=== PATIENT | male | born 1950 | race Caucasian/White ===

== ENCOUNTER 2021-01-25 00:23 | Day surgery (SDC) | payer MEDICARE, BC, SELFPAY ==
[2021-01-06 14:51] VITALS: BMI 26.9
[2021-01-25 09:37] VITALS: BP 127/103; PULSE 69; RESP 16; TEMP 36.4; O2SAT 69
--- NOTE | 2021-01-25 09:39 | WPDGICN ---
Assessment and Plan Assessment and plan (1) Positive colorectal cancer screening using Cologuard test: Code(s): R19.5 - Other fecal abnormalities Status: Acute Assessment and Plan: Colonoscopy with neoplasia screening will be performed because of positive Cologuard test. Further recommendations will be given after endoscopy. (2) SSS (sick sinus syndrome): Code(s): I49.5 - Sick sinus syndrome Status: Acute GI Consult Note Consult date/time: 01/25/21 09:39 HPI: Sonu Castanon is a 70 year old male Presents for screening colonoscopy. He recently was found to have a positive Cologuard test. Patient reports his weight appetite bowel movements are normal. He denies abdominal pain. He has had no bleeding. Family history is noncontributory. Neoplasia screening colonoscopy is advised because of his positive Cologuard test. Patient does report a past history of heart disease. Initially sick sinus syndrome he now has a pacemaker in place and has had several heart ablation is a. Heart is currently functioning well with no recent difficulties. Review of Systems Review of Systems: All systems reviewed & are unremarkable except as noted in HPI and below PMFSH Past Medical History Medical History (Updated 01/25/21 @ 09:40 by Max Baldwin MD) Paroxysmal A-fib Retinal detachment, right Retinal tear of left eye Surgical History Surgical History (Updated 01/06/20 @ 11:50 by Dick Hodges, PA-C) H/O cardiac radiofrequency ablation twice S/P tympanoplasty Status cardiac pacemaker Social History Social History Smoking status: Never smoker Second hand tobacco smoke exposure: No Alcohol intake: current Drinks per week: 8 Alcohol use details: occasionally Substance use: never Substance use type: does not use Living arrangements: with family Gender identity (if verbalized by the patient): Male Sexual Orientation (if Verbalized by the Patient): Straight or Heterosexual Spiritual care concerns: No Meds Home Medications and Allergies Home Medications Medication Instructions Recorded Confirmed Type cholecalciferol (vitamin D3) 50 2,000 unit PO DAILY 05/05/19 01/06/21 History mcg (2,000 unit) tablet multivitamin 1 tablet PO DAILY 05/05/19 01/06/21 History glucosamine sulf dipotassium Cl tablet PO 05/08/19 11/14/20 History 750 mg-chondroitin sulf 600 mg tablet apixaban 5 mg tablet 5 mg PO BID #180 tablet 11/13/19 01/06/21 Rx ezetimibe 10 mg tablet 10 mg PO DAILY #90 tablet 05/10/20 01/06/21 Rx metoprolol succinate 50 mg 75 mg PO BID #270 tablet 05/10/20 01/06/21 Rx tablet,extended release 24 hr omeprazole 40 mg capsule,delayed 40 mg PO DAILY #90 cap 05/10/20 01/06/21 Rx release rosuvastatin 5 mg tablet 5 mg PO DAILY #90 tablet 05/10/20 01/06/21 Rx triamterene 37.5 1 tablet PO QAM #90 tablet 05/10/20 01/06/21 Rx mg-hydrochlorothiazide 25 mg tablet Allergies Allergy/AdvReac Type Severity Reaction Status Date / Time propafenone Allergy Unknown Nausea And Verified 01/25/21 09:35 Vomiting Exam Narrative: Physical exam reveals patient to be alert. Vital signs stable. HEENT exam is unremarkable. Patient is anicteric. Lungs are clear to auscultation and percussion. Heart is without murmur or extra sounds. Abdominal exam bowel sounds are present soft nontender with no organomegaly. Digital external rectal exam is normal.
[2021-01-25] MEDS: LACTATED RINGERS 1,000 ML 150 ML IV CONT (09:46)
--- NOTE | 2021-01-25 09:47 | WPDANESEPPF ---
Anes - Initial Pre Proc Eval Procedure: Operation Date: 01/25/21 10:30 Proposed Procedures p Colonoscopy - Max Baldwin MD Date/Time: 01/25/21 09:47 Surgeon: Max Baldwin MD Pre Op Diagnosis: positive cologuard Patient Data Age: 70 Gender: M Height: 1.83 m Weight: 85.6 kg Last Vital Signs Temp 36.4 C L 01/25/21 09:37 Pulse 69 01/25/21 09:37 Resp 16 01/25/21 09:37 BP 127/103 H 01/25/21 09:37 Pulse Ox 69 L 01/25/21 09:37 Allergies Allergy/AdvReac Type Severity Reaction Status Date / Time propafenone Allergy Unknown Nausea And Verified 01/25/21 09:35 Vomiting Home Medications Medication Instructions Recorded Confirmed Type cholecalciferol (vitamin D3) 50 2,000 unit PO DAILY 05/05/19 01/06/21 History mcg (2,000 unit) tablet multivitamin 1 tablet PO DAILY 05/05/19 01/06/21 History glucosamine sulf dipotassium Cl tablet PO 05/08/19 11/14/20 History 750 mg-chondroitin sulf 600 mg tablet apixaban 5 mg tablet 5 mg PO BID #180 tablet 11/13/19 01/06/21 Rx ezetimibe 10 mg tablet 10 mg PO DAILY #90 tablet 05/10/20 01/06/21 Rx metoprolol succinate 50 mg 75 mg PO BID #270 tablet 05/10/20 01/06/21 Rx tablet,extended release 24 hr omeprazole 40 mg capsule,delayed 40 mg PO DAILY #90 cap 05/10/20 01/06/21 Rx release rosuvastatin 5 mg tablet 5 mg PO DAILY #90 tablet 05/10/20 01/06/21 Rx triamterene 37.5 1 tablet PO QAM #90 tablet 05/10/20 01/06/21 Rx mg-hydrochlorothiazide 25 mg tablet Patient hx anesthesia problems: none Family hx anesthesia problems: none PMFSH Past Medical History Medical History (Updated 01/25/21 @ 09:40 by Max Baldwin MD) Paroxysmal A-fib Retinal detachment, right Retinal tear of left eye Surgical History Surgical History (Updated 01/06/20 @ 11:50 by Dick Hodges, PA-C) H/O cardiac radiofrequency ablation twice S/P tympanoplasty Status cardiac pacemaker Social History Social History Smoking status: Never smoker Second hand tobacco smoke exposure: No Alcohol intake: current Drinks per week: 8 Alcohol use details: occasionally Substance use: never Substance use type: does not use Living arrangements: with family Gender identity (if verbalized by the patient): Male Sexual Orientation (if Verbalized by the Patient): Straight or Heterosexual Spiritual care concerns: No Anes - Eval Final PreProcedure Day of Procedure 01/25/21 09:47 Patient weight: obese Heart: regular rate and rhythm Lungs: clear to auscultation and normal air movement Airway: Mallampati scale class II Neurological: alert and oriented Last oral intake: >/= 8 hours ASA classification: III Emergent: no Anesthetic plan: proceed Anesthesia type and monitoring: general GIVS Informed Consent: The patient's anesthetic plan and its attendant risks and benefits were discussed with the patient/family/POA. Questions were solicited and answers provided to the satisfaction of the patient/family/POA.
[2021-01-25 10:27] VITALS: BP 99/72; PULSE 60; RESP 18; O2SAT 96
[2021-01-25 10:37] VITALS: BP 114/73; PULSE 60; RESP 17; O2SAT 99
[2021-01-25 10:47] VITALS: BP 143/82; PULSE 60; RESP 11; O2SAT 100
== END 2021-01-25 10:57 | disposition home or self-care (01) ==
PROVIDERS: PCP Family Medicine; Visit Provider Internal Medicine Gastroenterology
PROC: 0DJD8ZZ Inspection of Lower Intestinal Tract, Via Natural or Artificial Opening Endoscopic (ICD-10-PCS; CPT 45378; principal; 2021-01-25 10:30)
DX: R19.5 Other fecal abnormalities (principal); D12.5 Benign neoplasm of sigmoid colon; I48.0 Paroxysmal atrial fibrillation; I49.5 Sick sinus syndrome; Z79.01 Long term (current) use of anticoagulants; E66.9 Obesity, unspecified; Z68.25 Body mass index [BMI] 25.0-25.9, adult
CPT/HCPCS: 45385; 88305; J2704; J7120

== ENCOUNTER 2024-04-08 01:33 | Day surgery (SDC) | payer MEDICARE, BC, SELFPAY ==
[2024-03-27 13:20] VITALS: BMI 27.6
--- NOTE | 2024-04-01 12:57 | SUR.PREOP ---
Spoke with patient regarding Eliquis. Pt verbalizes understanding that the last dose is to be taken on 04/05/24 and the Endoscopist will instruct them when to restart after the procedure.
[2024-04-08 06:37] VITALS: BP 115/79; PULSE 73; RESP 18; TEMP 36.1; O2SAT 97
[2024-04-08] MEDS: LACTATED RINGERS 1,000 ML 150 ML IV CONT (06:46)
--- NOTE | 2024-04-08 07:25 | WPDANESEPPF ---
Anes - Initial Pre Proc Eval Procedure: Operation Date: 04/08/24 07:30 Proposed Procedures p Screening Colonoscopy - Elliott Becerril MD Date/Time: 04/08/24 07:25 Surgeon: Elliott Becerril MD Pre Op Diagnosis: Personal Hx Colon Polyps Patient Data Age: 73 Gender: M Height: 1.83 m Weight: 91.3 kg Last Vital Signs Temp 36.1 C L 04/08/24 06:37 Pulse 73 04/08/24 06:37 Resp 18 04/08/24 06:37 BP 115/79 04/08/24 06:37 Pulse Ox 97 04/08/24 06:37 O2 Del Method Room Air 04/08/24 06:37 Allergies Allergy/AdvReac Type Severity Reaction Status Date / Time propafenone Allergy Intermediate Nausea And Verified 04/08/24 06:35 Vomiting neoprene fabric Allergy Intermediate Rash Uncoded 04/08/24 06:35 Home Medications Medication Instructions Recorded Confirmed Type cholecalciferol (vitamin D3) 50 2,000 unit PO DAILY 05/05/19 04/08/24 History mcg (2,000 unit) tablet multivitamin 1 tablet PO DAILY 05/05/19 04/08/24 History glucosamine sulf dipotassium Cl 2 tablet PO DAILY 05/08/19 04/08/24 History 750 mg-chondroitin sulf 600 mg tablet (Glucosamine-Chondroitin 3X Triple Strength) apixaban 5 mg tablet (Eliquis) 5 mg PO BID #180 tabs 05/15/21 04/08/24 Rx metoprolol succinate 50 mg 75 mg PO BID #270 tabs 11/13/21 04/08/24 Rx tablet,extended release 24 hr triamterene 37.5 See Rx Instructions .Route 02/01/23 04/08/24 Rx mg-hydrochlorothiazide 25 mg tablet .COMPLEX #90 tabs omeprazole 40 mg capsule,delayed 40 mg PO DAILY #90 caps 08/13/23 04/08/24 Rx release potassium chloride 10 mEq 10 meq PO DAILY #90 tabs 08/13/23 04/08/24 Rx tablet,extended release rosuvastatin 5 mg tablet (Crestor) 5 mg PO DAILY #90 tabs 08/13/23 04/08/24 Rx tamsulosin 0.4 mg capsule 0.4 mg PO DAILY 12/23/23 04/08/24 History B6 0.85 mg-folic 200 1 tablet PO DAILY 03/27/24 04/08/24 History [id number] oral chewable tablet (Neuriva Plus) Eye Vitamin With Lutein 1 tab-cap PO BID 03/27/24 04/08/24 History finasteride 5 mg tablet 5 mg PO DAILY 03/27/24 04/08/24 History naproxen sodium 220 mg tablet 220 mg PO Q12H PRN Pain 03/27/24 04/08/24 History (Alemario alberto) Patient hx anesthesia problems: none Family hx anesthesia problems: none Results Review: All pre-operative results and documents have been reviewed as part of the pre-operative evaluation. [facility] Past Medical History Medical History HTN (hypertension) REYES (obstructive sleep apnea) Paroxysmal A-fib Retinal detachment, right Retinal tear of left eye Surgical History Surgical History H/O cardiac radiofrequency ablation twice S/P tympanoplasty Status cardiac pacemaker Social History Social History Smoking status: Never smoker Second hand tobacco smoke exposure: No Alcohol intake: current Drinks per week: 8 Alcohol use details: occasionally Substance use: never Substance use type: does not use Living arrangements: with family Occupation/Education: retired Gender identity (if verbalized by the patient): Male Sexual Orientation (if Verbalized by the Patient): Straight or Heterosexual Spiritual care concerns: No Anes - Eval Final PreProcedure Day of Procedure 04/08/24 07:25 Patient weight: overweight Heart: regular rate and rhythm Lungs: clear to auscultation Airway: Mallampati scale class II Neurological: alert and oriented Last oral intake: >/= 8 hours ASA classification: III Emergent: no Anesthetic plan: proceed Anesthesia type and monitoring: general GIVS and standard monitoring Results Review: All pre-operative results and documents have been reviewed as part of the pre-operative evaluation. Informed Consent: The patient's anesthetic plan and its attendant risks and benefits were discussed with the patient/family/POA. Questions were solicited and answers provided to the satisfaction of the patient/family/POA.
--- NOTE | 2024-04-08 07:40 | PM.HPGS ---
History of Present Illness History of Present Illness Consent: Risks, benefits, and alternatives have been discussed and questions answered. Patient agrees to proceed with procedure. Chief complaint: Personal Hx Colon Polyps Narrative: Sonu Castanon is a 73 year old male with colon polyp 3 years ago Review of Systems Review of Systems: All systems reviewed & are unremarkable except as noted in HPI and below PMFSH Past Medical History Medical History (Updated 04/08/24 @ 07:41 by Elliott Becerril MD) Colon polyp HTN (hypertension) REYES (obstructive sleep apnea) Paroxysmal A-fib Retinal detachment, right Retinal tear of left eye Surgical History Surgical History H/O cardiac radiofrequency ablation twice S/P tympanoplasty Status cardiac pacemaker Social History Social History Smoking status: Never smoker Second hand tobacco smoke exposure: No Alcohol intake: current Drinks per week: 8 Alcohol use details: occasionally Substance use: never Substance use type: does not use Living arrangements: with family Occupation/Education: retired Gender identity (if verbalized by the patient): Male Sexual Orientation (if Verbalized by the Patient): Straight or Heterosexual Spiritual care concerns: No Meds Home Medications and Allergies Home Medications Medication Instructions Recorded Confirmed Type cholecalciferol (vitamin D3) 50 2,000 unit PO DAILY 05/05/19 04/08/24 History mcg (2,000 unit) tablet multivitamin 1 tablet PO DAILY 05/05/19 04/08/24 History glucosamine sulf dipotassium Cl 2 tablet PO DAILY 05/08/19 04/08/24 History 750 mg-chondroitin sulf 600 mg tablet (Glucosamine-Chondroitin 3X Triple Strength) apixaban 5 mg tablet (Eliquis) 5 mg PO BID #180 tabs 05/15/21 04/08/24 Rx metoprolol succinate 50 mg 75 mg PO BID #270 tabs 11/13/21 04/08/24 Rx tablet,extended release 24 hr triamterene 37.5 See Rx Instructions .Route 02/01/23 04/08/24 Rx mg-hydrochlorothiazide 25 mg tablet .COMPLEX #90 tabs omeprazole 40 mg capsule,delayed 40 mg PO DAILY #90 caps 04/09/24 12/04/24 Rx release potassium chloride 10 mEq 10 meq PO DAILY #90 tabs 08/13/23 04/08/24 Rx tablet,extended release rosuvastatin 5 mg tablet (Crestor) 5 mg PO DAILY #90 tabs 08/13/23 04/08/24 Rx tamsulosin 0.4 mg capsule 0.4 mg PO DAILY 12/23/23 04/08/24 History B6 0.85 mg-folic 200 1 tablet PO DAILY 03/27/24 04/08/24 History [id number] oral chewable tablet (Neuriva Plus) Eye Vitamin With Lutein 1 tab-cap PO BID 03/27/24 04/08/24 History finasteride 5 mg tablet 5 mg PO DAILY 03/27/24 04/08/24 History naproxen sodium 220 mg tablet 220 mg PO Q12H PRN Pain 03/27/24 04/08/24 History (Aleve) Allergies Allergy/AdvReac Type Severity Reaction Status Date / Time propafenone Allergy Intermediate Nausea And Verified 04/08/24 06:35 Vomiting neoprene fabric Allergy Intermediate Rash Uncoded 04/08/24 06:35 Vital Signs Vital Signs - 24 hr 04/08/24 06:37 Temperature 97 F L Pulse Rate 73 Respiratory Rate 18 Blood Pressure 115/79 Pulse Oximetry 97 Oxygen Delivery Room Air Exam Const: General: comfortable and no acute distress HENMT: Face/Nose/Sinus: Normal nares present Eyes: General: appearance normal, both eyes and all related structures Neck: Neck: no JVD Resp: Auscultation: clear to auscultation bilaterally Cardio: Rate: regular rate Rhythm: regular rhythm GI: Inspection: non-distended GI Palp: Yes Soft to palpation Skin: General skin exam: normal color Neuro: General: gait normal Speech: normal speech Extrem: General: normal to inspection Psych: Mental Status: mental status grossly normal Assessment and Plan Assessment and plan (1) Colon polyp: Code(s): K63.5 - Polyp of colon Status: Acute Assessment and Plan: colonoscopy
[2024-04-08 07:54] VITALS: BP 75/56; PULSE 62; RESP 18; O2SAT 92
[2024-04-08 08:04] VITALS: BP 87/62; PULSE 66; RESP 16; O2SAT 96
[2024-04-08 08:14] VITALS: BP 104/67; PULSE 62; RESP 18; O2SAT 94
== END 2024-04-08 08:32 | disposition home or self-care (01) ==
PROVIDERS: PCP Family Medicine; Visit Provider Internal Medicine Gastroenterology
PROC: 0DJD8ZZ Inspection of Lower Intestinal Tract, Via Natural or Artificial Opening Endoscopic (ICD-10-PCS; CPT 45378; principal; 2024-04-08 07:30)
DX: Z12.11 Encounter for screening for malignant neoplasm of colon (principal); D12.5 Benign neoplasm of sigmoid colon; D12.3 Benign neoplasm of transverse colon; I10 Essential (primary) hypertension; G47.33 Obstructive sleep apnea (adult) (pediatric); I48.0 Paroxysmal atrial fibrillation; Z79.01 Long term (current) use of anticoagulants; Z79.1 Long term (current) use of non-steroidal anti-inflammatories (NSAID); Z98.890 Other specified postprocedural states; Z95.0 Presence of cardiac pacemaker; Z86.79 Personal history of other diseases of the circulatory system
CPT/HCPCS: 45380; 45385; 88305; J2704; J7120

== ENCOUNTER 2024-07-06 10:31 | Outpatient (CLI) | payer MEDICARE, BC, SELFPAY | END 2024-07-06 10:32 | disposition home or self-care (01) | PROVIDERS: PCP Family Medicine; Visit Provider Family Medicine | DX: M54.2 Cervicalgia (principal); R42 Dizziness and giddiness | CPT/HCPCS: 72040 ==

== ENCOUNTER 2024-07-16 13:03 | Outpatient (CLI) | payer MEDICARE, BC, SELFPAY ==
--- NOTE | ~2024-07-16 | US_ITS ---
EXAMINATION: US carotid duplex BI DATE: 07/16/2024 13:30 INDICATION: Dizziness and giddiness. TECHNIQUE: Grayscale, color Doppler, and pulsed Doppler images of the cervical carotid arteries were obtained. The degree of vessel stenosis is placed in one of the following categories: normal, <50%, 5 0-69%, >=70% but less than near-occlusion, near-occlusion, or total occlusion. Note that percent sten osis relative to normal distal artery lumen diameter is indirectly measured from velocity measurement s as described by Gunnar, et al. Radiology 2003; 229:[id number]. COMPARISON: None. FINDINGS: RIGHT: The right common carotid artery (CCA) peak systolic velocity (PSV) is 70 cm/s. The right internal car otid artery (ICA) PSV is 69 cm/s. The right ICA end-diastolic velocity (EDV) is 27 cm/s. The right IC A/CCA PSV ratio is 1.0. Grayscale and color Doppler images yield an estimate of <50% diameter reducti on from plaque in the ICA. There is antegrade flow in the right vertebral artery. LEFT: The left CCA PSV is 84 cm/s. The left ICA PSV is 83 cm/s. The left ICA EDV is 32 cm/s. The left ICA/C CA PSV ratio is 1.0. Grayscale and color Doppler images yield an estimate of <50% diameter reduction from plaque in the ICA. There is antegrade flow in the left vertebral artery. IMPRESSION: 1. <50% stenosis in the right internal carotid artery. 2. <50% stenosis in the left internal carotid artery. Reviewed, dictated and finalized at location B.
== END 2024-07-16 13:04 | disposition home or self-care (01) ==
PROVIDERS: PCP Family Medicine; Visit Provider Family Medicine
DX: I65.23 Occlusion and stenosis of bilateral carotid arteries (principal)
CPT/HCPCS: 93880

== ENCOUNTER 2024-12-31 09:33 | Outpatient (CLI) | payer MEDICARE, BC, SELFPAY ==
--- OUTSIDE RECORDS SUMMARY | 2024-09-10 04:20 | XMS_ITS ---
Author Organization [facility] Address [address] [place], [place] [id number] Care Team Providers Care Business Continuity Specialist Name Role Phone Sherri Rey Primary Care Provider PATTI Mahan [phone] REASON FOR VISIT GENERAL CARE, *General care, Patient presents to the office for at risk foot care Medications Medication SIG (Take, Route, Fr equency, Duration) Notes Start Date End Date Status Triamterene Active Rosuvastatin Calcium Active Omeprazole Active Finasteride Active Metoprolol Succinate ER Active Eliquis Active Potassimin Active diazePAM Active Tamsulosin HCl 0.4 MG 1 capsule Orally Once a day Active Vital Signs Height 72 in 09/10/2024 Weight 201 lbs 09/10/2024 BMI 27.26 kg/m2 09/10/2024 Height-cm 182.88 cm 09/10/2024 Weight-kg 91.17 kg 09/10/2024 Encounters Encounter Location Date Provider Diagnosis [facility] [address] [place], [place] [id number] 09/10/2024 PATTI WATT Onychomycosis B35.1 ; Pain in left toe(s) M79.675 ; Pain in right toe(s) M79.674 ; Intermittent claudication of both lower extremities due to atherosclerosis I70.213 ; Ingrowing nail L60.0 and Difficulty in walking involving ankle and foot joint R26.2 Assessments Encounter Date Diagnosis (ICD Code) Assessment Notes Treatment Notes Treatment Clinical Notes Section Notes 09/10/2024 Onychomycosis (ICD-10 - B35.1) 1. Nails 1-5 Bilateral were debrided extensively with nail nippers and emery board, reducing length and girth to pink healthy tissue with any subungual debris and necrotic tissue removed 2. Patient was instructed on the importance of daily visual inspection of both feet. Patient should report to the office if they see any unusual redness, swelling, open sores, ulcerations or signs of infection. Patient should wear protective shoes around the house 3. Advised patient on appropriate shoe gear for protection, healing and overall foot health 09/10/2024 Pain in left toe(s) (ICD-10 - M79.675) 09/10/2024 Pain in right toe(s) (ICD-10 - M79.674) 09/10/2024 Intermittent claudication of both lower extremities due to atherosclerosis (ICD-10 - I70.213) 09/10/2024 Ingrowing nail (ICD-10 - L60.0) 09/10/2024 Difficulty in walking involving ankle and foot joint (ICD-10 - R26.2) 09/10/2024 Other Emollient: Recommend that the patient use an emollient such as hcqp-pmb-uprcml r Eucerin cream, Vanicream, or other lotion to the affected area. Plan Of Treatment Treatment Notes Assessment Notes Onychomycosis 1. Nails 1-5 Bilateral were debrided extensively with nail nippers and emery board, reducing length and girth to pink healthy tissue with any subungual debris and necrotic tissue removed 2. Patient was instructed on the importance of daily visual inspection of both feet. Patient should report to the office if they see any unusual redness, swelling, open sores, ulcerations or signs of infection. Patient should wear protective shoes around the house 3. Advised patient on appropriate shoe gear for protection, healing and overall foot health Other Emollient: Recommend that the patient use an emollient such as xnkt-rtn-ohsxxld Eucerin cream, Vanicream, or other lotion to the affected area. Next Appt Details Follow Up: 3 Months, Reason: at risk foot care Provider Name:PATTI WATT, 03/11/2025 09:40:00 AM, [address], [id number], Progress Notes * Sonu CASTANONDOB: [birth year] (74 yo M)Acc No.[id number]:09/10/2024 Patient: Sonu FLAHERTY Provider: Ambar Watt DPM :1950 A ge:74 Y S ex:Male Date:09/10/2024 Address:[address] [place], [place] [id number] Pcp:Rey Polanco Subjective: * Chief Complaints: * 1 . GENERAL CARE. 2. *General care. 3. Patient presents to the office for at risk foot care. * HPI: H PI: General care P atient presents to the office for at risk foot care. Patient states that their nails are thickened, elongated and painful. Patient states that it is aggravated by shoe gear. Onset is gradual. Patient denies being diabetic., Patient is taking prescription blood thinners., Date last seen by Dr. Polanco was July 2024., Initials JMR. * ROS: G eneral / Constitutional: Patient denies f atigue, fever, pain, weight loss. ? C ardiovascular: Patient denies c hest pain, dizziness, palpitations. ? M usculoskeletal: Patient denies a rthritis, joint stiffness, painful joints, childhood foot problems. P atient complains of g ait (walking problems), muscle cramps.? P eripheral Vascular: Patient denies u lceration of feet, blood clots in legs.?Patient complains of p ain / cramping in legs after exertion, cold extremities. ? P odiatric: Patient denies b urning of the feet, difficulty walking, fever. S kin: Patient denies d ry skin, discoloration, rash on feet, ulcerations. P atient complains of n ail changes, dry skin. N eurologic: Patient denies d izziness, balance difficulty, seizures, Numbness, Burning/Tingling. P atient complains of g ait abnormality. * Medical History: A porfirio reflux, Leg/Feet cramps. * Family History: N o Family History documented.. * Medications: T claireg Tamsulosin HCl 0.4 MG Capsule 1 capsule Orally Once a day , Taking diazePAM , Taking Potassimin , Taking Eliquis , Taking Finasteride , Taking Omeprazole , Taking Rosuvastatin Calcium , Taking Triamterene , Taking Metoprolol Succinate ER , Medication List reviewed and reconciled with the patient Objective: * Vitals: W t:201lbs, Wt-k.17 kg, Ht: 72 in, Ht-cm: 182.88 cm, BMI:27.26Index, Body Surface Area: 2.15. * Examination: D ermatologic: Skin findings: S kin is thin, atrophic and lacking pedal hair.. Nail pathology: N ails 1 bilateral are elongated, thick, discolored, and dystrophic with subungual debris. Nails are slightly incurvated on lateral borders. They are painful to palpation. M usculoskeletal: Muscle Strength M uscle strength is 5/5 in regards to dorsiflexion, plantarflexion, inversion, and eversion in bilateral lower extremities.. ? V ascular: Dorsalis pedis pulse: 0 /4, bilateral. Posterior tibial pulse: 0 /4, bilaterally. Capillary refill: g reater than 3 seconds. Edema: m ild, non-pitting, bilateral. ? N eurologic: Tinel's sign: n egative. Vibratory: n ormal. [place] 5.07 monofilament I ntact protective sensation via 5.07 g swmf bilateral. C onstitutional: Constitutional T he patient is awake, alert, well developed, well groomed and well nourished.. Assessment: * Assessment: 1. O nychomycosis - B35.1 (Primary) 2 . P ain in left toe(s) - M79.675 3 . P ain in right toe(s) - M79.674 4 . I ntermittent claudication of both lower extremities due to atherosclerosis - I70.213 5 . I ngrowing nail - L60.0 6 . D ifficulty in walking involving ankle and foot joint - R26.2 Plan: * Treatment: 2. O thers Notes: Emollient: Recommend that the patient use an emollient such as lytt-pra-eujzdex Eucerin cream, Vanicream, or other lotion to the affected area. * Immunizations: Immunization record has been reviewed and updated. * Procedure Codes: 1 1721 DEBRIDE NAIL, 6 OR MORE, Modifiers: Q8 * Follow Up: 3 Months (Reason: at risk foot care) * Billing Information: * Visit Code: * Procedure Codes: 58580 DEBRIDE NAIL, 6 OR MORE. Modifiers: Q8 * Electronic signature of ANNIE DARDEN DPM on 12/31/2024 at 09:41 AM CDT Sign off status: Pending * Provider: Ambar Watt DPM Date: 0 09/10/2024 Generated for Sharon heaton/Naeem/Kodi on: 0 12/31/2024 09:41 AM CDT History and Physical Notes * HPI (History of Present Illness) Category Sub-Category Detail Notes Category Not es HPI General care Patient presents to the office for at risk foot care. Patient states that their nails are thickened, elongated and painful. Patient states that it is aggravated by shoe gear. Onset is gradual. Patient denies being diabetic., Patient is taking prescription blood thinners., Date last seen by Dr. Polanco was July 2024., Initials JMR Examination Category Sub-Category Detail Notes Category Not es Dermatologic Skin findings: Skin is thin, at rophic and lacking pedal hair. Nail pathology: Nails 1 bilateral ar e elongated, thick, discolored, and dystrophic with subungual debris. Nails are slightly incurvated on lateral borders. They are painful to palpation Neurologic Tinel's sign: negative Vibratory: normal [place] 5.07 monofilament Intact protective sensation via 5.07 g swmf bilateral Vascular Dorsalis pedis pulse: 0/4, bilateral Edema: mild, non-pitting, b ilateral Capillary refill: greater than 3 secon ds Posterior tibial pulse: 0/4, bilaterally Musculoskeletal Muscle Strength Muscle strength is 5/5 in regards to dorsiflexion, plantarflexion, inversion, and eversion in bilateral lower extremities. Constitutional Constitutional The patient is a wake, alert, well developed, well groomed and well nourished.
--- OUTSIDE RECORDS SUMMARY | 2024-12-10 04:40 | XMS_ITS ---
Author Organization [facility] Address [address] [place], [place] [id number] Care Team Providers Care Windows Laptop Technician Name Role Phone Sherri Rey Primary Care Provider PATTI Mahan [phone] Allergies No Known Allergies REASON FOR VISIT *General care, GENERAL CARE, *General care, Patient presents to the office for at risk foot care Medications Medication SIG (Take, Route, Fr equency, Duration) Notes Start Date End Date Status Triamterene Active Metoprolol Succinate ER Active Omeprazole Active Rosuvastatin Calcium Active Finasteride Active diazePAM Active Potassimin Active Tamsulosin HCl 0.4 MG 1 capsule Orally Once a day Active Eliquis Active Vital Signs Height 72 in 12/10/2024 Weight 206 lbs 12/10/2024 BMI 27.94 kg/m2 12/10/2024 Height-cm 182.88 cm 12/10/2024 Weight-kg 93.44 kg 12/10/2024 Encounters Encounter Location Date Provider Diagnosis [facility] [address] [place], [place] [id number] 12/10/2024 PATTI WATT Onychomycosis B35.1 ; Pain in left toe(s) M79.675 ; Pain in right toe(s) M79.674 ; Intermittent claudication of both lower extremities due to atherosclerosis I70.213 ; Ingrowing nail L60.0 and Difficulty in walking involving ankle and foot joint R26.2 Assessments Encounter Date Diagnosis (ICD Code) Assessment Notes Treatment Notes Treatment Clinical Notes Section Notes 12/10/2024 Onychomycosis (ICD-10 - B35.1) 1. Nails 1-5 [...] for protection, healing and overall foot health 12/10/2024 Pain in left toe(s) (ICD-10 - M79.675) 12/10/2024 Pain in right toe(s) (ICD-10 - M79.674) 12/10/2024 Intermittent claudication of both lower extremities due to atherosclerosis (ICD-10 - I70.213) 12/10/2024 Ingrowing nail (ICD-10 - L60.0) 12/10/2024 Difficulty in walking involving ankle and foot joint (ICD-10 - R26.2) 12/10/2024 Other Emollient: Recommend that the patient use an emollient such as xrcp-ejl-ltymta r Eucerin cream, Vanicream, or other lotion [...] the patient use an emollient such as bizj-tak-thehswd Eucerin cream, Vanicream, or other lotion to the affected area. Next Appt Details Follow Up: 3 Months, Reason: at risk foot care Provider Name:PATTI WATT, 03/11/2025 09:40:00 AM, [address], [place], [place], [id number], Progress Notes * Sonu CASTANONDOB: [birth year] (74 yo M)Acc No.[id number]:12/10/2024 Patient: Sonu FLAHERTY Provider: Ambar Watt DPM :1950 A ge:74 Y S ex:Male Date:12/10/2024 Address:[address] [place], [place] [id number] Pcp:Rey Polanco Subjective: * Chief Complaints: * 1 . *General care. 2. GENERAL CARE. 3. *General care. 4. Patient presents to the office for at [...] Date last seen by Dr. Polanco was 2024., Initials FH. * ROS: G eneral / Constitutional: Patient [...] o Family History documented.. * Medications: T delfina Tamsulosin HCl 0.4 MG Capsule 1 capsule Orally Once a day , Taking diazePAM , Taking Potassimin , Taking Eliquis , Taking Finasteride , Taking Omeprazole , Taking Rosuvastatin Calcium , Taking Triamterene , Taking Metoprolol Succinate ER , Medication List reviewed and reconciled with the patient * Allergies: N .K.D.A. Objective: * Vitals: S hoe Size: 9.5, Wt:206lbs, Wt-k.44 kg, Ht: 72 in, Ht-cm: 182.88 cm, BMI:27.94Index, Body Surface Area: 2.18. * Examination: D ermatologic: Skin findings: S [...] Tinel's sign: n egative. Vibratory: n ormal. [place]instin 5.07 monofilament I ntact protective sensation via [...] the patient use an emollient such as dwdx-bze-nzawtgi Eucerin cream, Vanicream, or other lotion to the affected area. * Follow Up: 3 Months (Reason: at risk foot care) * Billing Information: * Visit Code: * Procedure Codes: * Electronic signature of ANNIE DARDEN DPM on 12/31/2024 at 09:41 AM CDT Sign off status: Pending * Provider: Ambar Watt DPM Date: 12/10/2024 Generated for Sharon heaton/Naeem/Romanaitting on: 12/31/2024 09:41 AM CDT History and Physical [...] Date last seen by Dr. Polanco was 2024., Initials FH Examination Category Sub-Category Detail Notes Category Not es Dermatologic Skin findings: Skin is thin, at rophic and lacking pedal hair. Nail pathology: Nails 1 bilateral ar e elongated, thick, discolored, and dystrophic with subungual debris. Nails are slightly incurvated on lateral borders. They are painful to palpation Neurologic Tinel's sign: negative Vibratory: normal [place]in 5.07 monofilament Intact protective sensation via 5.07 [...]
--- OUTSIDE RECORDS SUMMARY | 2024-12-31 09:41 | XMS_ITS | Encounter Summary ---
Author Organization [facility] Address [address] [place] [address] Care Team Providers Care Supervisor Post Wave Name Role Phone Unavailable Primary Care Provider Unavailabl e Encounter Details Date Type Department Care Team (Late st Contact Info) Description 11/26/2022 Lab Requisition [facility] - DermPath Lab [address] [facility] [place] [address] Leora Wing MD [address] [facility] [address] [place] [address] Social History Tobacco Use Types Packs/Day Years Used Date Smoking Tobacco: Never Assessed Sex and Gender Information Value Date Recorded Sex Assigned at Not on file Legal Sex Male 11:25 AM CDT Gender Identity Not on file Sexual Orientation Not on file documented as of this encounter Plan of Treatment Not on file documented as of this encounter Procedures Procedure Name Priority Date/Time Associated Diagnosis Comments DERMATOPATHOLOGY Routine 11/26/2022 9:10 AM CDT documented in this encounter Results * DERMATOPATHOLOGY (11/26/2022 9:10 AM CDT) Case Report Dermatopathology Report Case: [id number] Authorizing Provider: Leora Wing MD Collected: 11/26/2022 09:10 AM Ordering Location: [facility] DermPath Lab Received: 11/26/2022 02:14 PM Pathologist: Cam Tobar MD Specimen: Skin, left back 3 4:20 PM CDT DERMATOPATHOLOGY LABORATORY Final Diagnosis Specimen A. SKIN, left back: HEMANGIOMA (D18.01) 3 4:20 PM CDT DERMATOPATHOLOGY LABORATORY at 1620 CDT Clinical History Angioma R/O atypia 3 4:20 PM CDT DERMATOPATHOLOGY LABORATORY Gross Description Specimen A: Received is one formalin filled container labeled with the patient's name and designated left back. The specimen consists of a shave biopsy measuring 7x6x1 mm. Jar 0. 3 4:20 PM CDT DERMATOPATHOLOGY LABORATORY Microscopic Description Specimen A. SKIN, left back: In the dermis, there are dilated vascular spaces surrounded by widely spaced endothelial cells. 3 4:20 PM CDT DERMATOPATHOLOGY LABORATORY Disclaimer An external and internal positive and negative controls are appropriate for the histochemical, immunohistochemical and immunofluorescence stain(s) in this case (if any), except where stated explicitly. The performance characteristics of the stain(s) cited in this report were developed and its performance characteristic determined by the Dermatopathology Laboratory at [facility], directed by Dr. Gabby Tobar. These tests need not be, and therefore are not, approved by the [place] Food and Drug Administration. The tests are used for clinical purposes. Billing Codes Specimen Charges Stain Charges 75044 1 3 4:20 PM CDT DERMATOPATHOLOGY LABORATORY Embedded Images 3 4:20 PM CDT DERMATOPATHOLOGY LABORATORY Pathology/Cytolo gy TISSUE SPECIMEN FROM SKIN / Unknown 11/26/2022 9:10 AM CDT 11/26/2022 2:14 PM CDT Leora Wing MD LAB - PATHOLOGY/CYTOLOGY ORD ERABLES Final Result DERMATOPATHOLOGY LABORATORY [facility] - Department of Dermatology [facility] [address] [place] [address], [address] [place] [address], [facility] [phone] documented in this encounter Visit Diagnoses Not on filedocumented in this encounter
--- OUTSIDE RECORDS SUMMARY | 2024-12-31 09:41 | XMS_ITS | Clinical Summary ---
Author Organization [facility] Medical Office Building Address [address] [place] [address] Care Team Providers Care Healthcare Marketer Name Role Phone Rey Polanco MD Primary Care Provider Referral, Self Unavailable Unavailable Allergies Active Allergy Reactions Criticality Noted Date Comments Ezetimibe Muscle pain Medium 01/30/2021 Neopolycidin Rash Medium 03/26/2016 Medications ELIQUIS 5 mg tabletIndicatio ns:atrial fibrillation,Si ck Sinus Syndrom Take 1 tablet (5 mg total) by mouth 2 (two) times a day 8 Active metoprolol XL (TOPROL-XL) 50 mg 24 hr tabletIndicatio ns:Atrial Arrhythmia,hype rtension Take 1.5 tablets (75 mg total) by mouth 2 (two) times a day 0 Active rosuvastatin (CRESTOR) 5 mg tabletIndicatio ns:hyperlipidem ia Take 1 tablet (5 mg total) by mouth nightly 0 Active cholecalciferol (VITAMIN D-3) 2000 unit capsuleIndicati ons:Vitamin D Deficiency Take 1 capsule (2,000 Units total) by mouth import/export agent before breakfast 1 Active glucosam/chond- msm1/C/ml/bor (GLUCOSAMINE-CH OND-MSM COMPLEX ORAL)Indication s:Supplement Take 1 tablet by mouth import/export agent before breakfast 7 Active MEN'S MULTI-VITAMIN ORAL Take 1 tablet by mouth import/export agent before breakfast 1 Active potassium chloride ER 10 mEq CR tabletIndicatio ns:hypokalemia prevention Take 1 tablet/capsule (10 mEq total) by mouth import/export agent before breakfast 2 Active vitamin A-vitamin C-vit E-min tablet Take 1 tablet by mouth 2 (two) times a day Focus eye vitamin Active herbal drugs tablet Take 1 tablet by mouth import/export agent before breakfast Memory tablet Active naproxen (ALEVE) 220 mg tablet Take 1 tablet (220 mg total) by mouth as needed for pain Active finasteride (PROSCAR) 5 mg tablet Take 1 tablet (5 mg total) by mouth daily Active tamsulosin (FLOMAX) 0.4 mg extended release capsule 4 Active omeprazole (PriLOSEC) 40 mg capsule Take 1 capsule (40 mg total) by mouth 2 (two) times a day before breakfast and dinner 60 capsule 3 4 Active triamterene-hyd roCHLOROthiazid e 37.5-25 mg per capsule TAKE 1 CAPSULE EVERY MORNING 90 capsule 3 5 Active diazePAM (VALIUM) 5 mg tablet Take 1 tablet (5 mg total) by mouth every 6 (six) hours as needed (Dizziness) 30 tablet 5 Active Active Problems Problem Noted Date Diagnosed Date Primary osteoarthritis of right knee 08/21/2024 BPH (benign prostatic hyperplasia) 08/19/2024 GERD (gastroesophageal reflux disease) 5 S/P placement of cardiac pacemaker 08/19/2024 Hoarseness 04/09/2024 Assessment & Plan (06/10/2024 1:42 PM INDEX EDITOR): His voice is better. I think at this point he can consider decreasing his omeprazole to once a day. I told him to finish up his current twice a day prescription then go back on his prior dosage. Follow up with me if he has any further problems. Assessment & Plan (04/09/2024 5:34 PM INDEX EDITOR): I reassured him that his vocal cords have normal mobility and no significant lesions. There does appear to be mild inflammation which I suspect is possibly reflux related. I do not find evidence of a sinus infection. Laryngopharyngeal reflux 04/09/2024 Assessment & Plan (04/09/2024 5:33 PM INDEX EDITOR): We discussed laryngopharyngeal reflux disease. It could be causing these symptoms. It can be improved through dietary management and we talked about various dietary changes to consider. Also discussed aggressive treatment through twice a day proton pump inhibitors. I also provided some literature regarding this type of reflux and this included instructions on dietary management. We also discussed the potential long-term side effects of proton pump inhibitors including liver and kidney disease and increased risk of dementia. I do not intend to continue treatment with this medication indefinitely unless there was no other way to get the symptoms under control and the patient wishes to continue taking them. He is currently taking omeprazole once a day. I am going to start him on a 40 mg twice a day dosage. I would like to see him in follow-up in about 2 months. 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, [address] [place] [id number] Lindsey Bowens CMA 11/04/2024 Telephone [facility] [address] [place] [address] Ita Romero MS from Last 3 Months Surgical History Surgery Date Site/Laterality Comments EYE SURGERY 05/06/1986 - 05/05/1987 STAPEDECTOMY 05/06/2019 - 05/05/2020 Right CARDIAC PACEMAKER PLACEMENT 07/04/2016 - 08/03/2016 ABLATION 05/06/2018 - 05/05/2019 cardiac-x2 ARTHROSCOPIC REPAIR ACL 05/06/1988 - 05/05/1989 Right APPENDECTOMY 05/06/2014 - 05/05/2015 OTHER SURGICAL HISTORY 05/06/2018 - 05/05/2019 lead wire revision CATARACT EXTRACTION 05/06/2018 - 05/05/2019 Right Medical History Medical History Date Comments Heart disease GERD (gastroesophageal reflux disease) 2012 HL (hearing loss) 2012 Cataract Hoarseness PND (post-nasal drip) Family History Medical History Relation Name Comments Hypertension Brother Alex Stroke Brother Alex Cancer Father [place] Hearing loss Mother Edelin Hypertension Mother Edelin Osteoarthritis Mother Edelin Snoring Mother Edelin Stroke Mother Edelin Hearing loss Sister 1 Atiya Hypertension Sister 1 Atiya Snoring Sister 1 Atiya Hypertension Sister 2 Luda Anesthesia problems Neg Hx Relation Name Status Comments Brother Alex Father [place] Mother Edelin Sister 1 Atiya Sister 2 Luda Social History Tobacco Use Types Packs/Day Years Used Date Smoking Tobacco: Never Smokeless Tobacco: Never Tobacco Cessation:Counseling Given: Not Answered AUDIT-C Answer Date Recorded Q1: How often do you have a drink containing alc ohol? Monthly or less 07/16/2022 Q2: How many drinks containi ng alcohol do you have on a typical day when you are drinking? 1 or 2 07/16/2022 Q3: How often do you have si x or more drinks on one occasion? Never 07/16/2022 Personal Safety Answer Date Recorded Getting School Help Needed Denies 06/10 Sex and Gender Information Value Date Recorded Sex Assigned at Not on file Legal Sex Male 9:16 AM INDEX EDITOR Gender Identity Male 10/21/2020 3:44 PM CDT Sexual Orientation Not on file Obstetrics History Last Filed Vital Signs Vital Sign Reading Time Taken Comments Blood Pressure 118/66 07/16/2022 10:25 AM CDT Pulse 67 07/16/2022 10:25 AM CDT Temperature 36.6 C (97.9 F) 07/16/2022 9:35 AM CDT Respiratory Rate 18 06/10/2024 1:03 PM INDEX EDITOR Oxygen Saturation 100% 07/16/2022 10:25 AM CDT Inhaled Oxygen Concentration - - Weight 92.1 kg (203 lb) 06/10/2024 1:03 PM INDEX EDITOR Height 182.9 cm (6') 06/10/2024 1:03 PM INDEX EDITOR Body Mass Index 27.53 06/10/2024 1:03 PM INDEX EDITOR Plan of Treatment Upcoming Encounters Date Type Department Care Team (Latest Contact Info) Description 02/01/2025 7:30 AM CDT Hospital Encounter [facility] [place] [address] [place] [id number] Orlando Stallings MD [address] [place] [address] [address] POSADAS [address] [place] [id number] 02/01/2025 7:30 AM CDT - 02/01/2025 9:25 AM CDT Surgery [facility] [place] [address] [place] [address] Orlando Stallings MD [address] [place] [address] DR POSADAS [address] [place] [id number] RIGHT TOTAL KNEE ARTHROPLASTY Scheduled Procedures Name Priority Associated Diagnoses Date/Ti me ARTHROPLASTY TOTAL KNEE Primary osteoarthritis of right knee 02/01/2025 7:30 AM CDT Health Maintenance Due Date Last Done Comments Colon Cancer Screening-Colonoscopy 1950 Depression Screening 1950 Hepatitis C Screening 1950 Hepatitis B Screening 1970 Zoster Vaccine (2 of 3) 07/05/2017 05/10/2017 Well Visit 65+ 2017 Pneumococcal vaccine 65+ (2 of 2 - PPSV23, PCV20, or PCV21) 05/19/2020 03/24/2020 Fall Risk Assessment 07/17/2023 07/16/2022 Covid-19 Vaccine (2023-2 5 season) 2024 04/03/2023, 10/05/2021, 04/05/2021, Additional history exists Influenza Vaccine (#1) 2025 3, 02/12/2018, 05/02/2012 DTaP/Tdap/Td Vaccine (3 - Td or Tdap) 04/19/2033 04/19/2023, 01/15/2013 Goals Goal Patient Goal Type Associated Problems Recent Progress Patient-Stated? Author Autogenera caroline Goal Care Plan Autogenerated Problem No Paty Garber MA Medical Devices Implanted Type Area Compotype Operator Device Identifier Shelf Expiration Date Model / Serial / Lot Pacemaker Pacemaker Heart Cochlear [employer] Implant Cochlear Cochlear Nucleus Profile Plus Slim Modiolar Electrode [id number] - [id number] - [id number] Implanted:Qt y: 1 on 07/16/2022 by Marcin Man MD at [facility] [place] Left: Cochlea [employer]chle[employer] [id number] 03/13/2024 [id number] / [id number] / Additional Health Concerns Active Problems Noted Date Diagnosed Date Autogenerated Problem 11/03/2024 Insurance MEDICARE [facility]ARE [facility] Care Teams Healthcare Marketer Relationship Specialty Start Date End Date Rey Polanco MD [address] [facility] [address] [place] [address] PCP - General Family Medicine 04/14/18 Referral, Self Referring Physician Otolaryngology 11/11/19
--- OUTSIDE RECORDS SUMMARY | 2024-12-31 09:41 | XMS_ITS | Clinical Summary ---
Author Organization [facility] Address [address] [place] [address] Care Team Providers Care Transformer Maker Name Role Phone Unavailable Primary Care Provider Unavailabl e Source Comments [facility],non-owned Affiliates and Associated Physician Practices is amultiple site organization consisting of ambulatory clinics and hospital sitesin [place], [place], [place] and [place]. This disclosure is being madepursuant to the Care Everywhere program and may not contain all information available regarding this patient. Last updated 18.[facility] [employer] [place] Social History Tobacco Use Types Packs/Day Years Used Date Smoking Tobacco: Never Assessed Sex and Gender Information Value Date Recorded Sex Assigned at Not on file Legal Sex Male 11:25 AM CDT Gender Identity Not on file Sexual Orientation Not on file Plan of Treatment Health Maintenance Due Date Last Done Comments COLOGUARD (AGES 45-75) - COL ON CA SCREENING 1952 COLON MONITORING 1952 COLONOSCOPY - COLON CA SCREENING 1952 CT COLONOGRAPHY - COLON CA SCREENING 1952 Colorectal Cancer Screening 1952 FIT - COLON CA SCREENING 1952 FLEX SIG - COLON CA SCREENING 1952 LIPID TESTING 1950 MEDICARE AWV 12 MONTHS 1952 HEPATITIS C SCREENING 08/24/1970 DTAP/TDAP/TD VACCINES (1 - Tdap) 08/29/1971 PNEUMOCOCCAL VACCINE 50+ (1 of 1 - PCV) 2002 ZOSTER VACCINE (1 of 2) 2002 COVID-19 VACCINE (1 - 2023-2 5 season) 2024 DEPRESSION SCREENING 05/06/2024 INFLUENZA VACCINE (#1) 2025 Respiratory Syncytial Virus (RSV) Vaccine Pt: or over 60 yrs (1 - 1-dose 75+ series) 08/29/2027 HEPATITIS B VACCINE Aged Out No longe r eligible based on patient's age to complete this topic HIB VACCINE Aged Out No longer eligi ble based on patient's age to complete this topic HPV VACCINE Aged Out No longer eligi ble based on patient's age to complete this topic MENINGOCOCCAL (Group B) VACC INE SHARED DECISION-MAKING Aged Out No longer eligibl e based on patient's age to complete this topic MENINGOCOCCAL GROUPS A/C/Y/W VACCINE Aged Out No longer eligible b ased on patient's age to complete this topic [place] [address] [facility] MEDICARE [facility] SELF PAY NO INSURANCE Member Subscriber Plan / Payer (Ef fective for All Dates) Name:Sonu Castanon Member ID:Not on file Relation to Subscriber:Not on file Name:SONU CASTANON Subscriber ID:Not on file (Home) Address: [address] [place] [id number] Payer ID:Not on file Group ID:Not on file Type:Self Pay Address: [place], [place]
--- OUTSIDE RECORDS SUMMARY | 2024-12-31 09:41 | XMS_ITS | Encounter Summary ---
Author Organization [facility] Address [address] [place] [address] Care Team Providers Care Diagnostic Technologist Name Role Phone Unavailable Primary Care Provider Unavailabl e Encounter Details Date Type Department Care Team (Late st Contact Info) Description 10/29/2019 Lab Requisition [facility] [address] [facility] [place] [address] Leora Wing MD [address] [facility] [address] [place] [address] Social History Tobacco Use Types Packs/Day Years [...] Priority Date/Time Associated Diagnosis Comments DERMATOPATHOLOGY Routine 10/28/2019 12:0 0 AM CDT documented in this encounter Results * DERMATOPATHOLOGY (10/28/2019 12:00 AM CDT) Case Report Dermatopathology Report Case: [id number] Authorizing Provider: Leora Wing MD Collected: 10/28/2019 12:00 AM Ordering Location: [facility] Received: 10/29/2019 09:23 AM Pathologist: Cam Tobar MD Specimen: Skin, left arm 0 1:26 PM CDT DERMATOPATHOLOGY LABORATORY Final Diagnosis Specimen A. SKIN, left arm: ACTINIC KERATOSIS (L57.0) SEBORRHEIC KERATOSIS, INFLAMED (L82.0) (see microscopic description) 0 1:26 PM CDT DERMATOPATHOLOGY LABORATORY at 1326 CDT Clinical History R/O SCC vs seborrheic keratosis 0 1:26 PM CDT DERMATOPATHOLOGY LABORATORY Gross Description Specimen A: Received is one formalin filled container labeled with the patient's name and designated left arm. The specimen consists of a shave biopsy measuring 9x5x1 mm. Jar 0. 0 1:26 PM CDT DERMATOPATHOLOGY LABORATORY Microscopic Description Specimen A. SKIN, left arm: There is focal parakeratosis. The lower half of the epidermis shows disorderly maturation of keratinocytes with nuclear pleomorphism. There is also adjacent hyperkeratosis, parakeratosis, papillomatosis, and acanthosis of the epidermis. There is a lymphohistiocytic infiltrate within the papillary dermis that is focally lichenoid. 0 1:26 PM CDT DERMATOPATHOLOGY LABORATORY Disclaimer An external and internal positive and negative controls are appropriate for the histochemical, immunohistochemical and immunofluorescence stain(s) in this case (if any), except where stated explicitly. The performance characteristics of the stain(s) cited in this report were developed and its performance characteristic determined by the Dermatopathology Laboratory at [facility], directed by Dr. Gabby Tobar. These tests need not be, and therefore are not, approved by the [place] Food and Drug Administration. The tests are used for clinical purposes. Billing Codes Specimen Charges Stain Charges 46508 1 0 1:26 PM CDT DERMATOPATHOLOGY LABORATORY Embedded Images 0 1:26 PM CDT DERMATOPATHOLOGY LABORATORY Pathology/Cytolog y TISSUE SPECIMEN FROM SKIN / Unknown 10/28/2019 10/29/2019 9:23 AM CDT us Leora Wing MD LAB - PATHOLOGY/CYTOLOGY ORD ERABLES Final Result DERMATOPATHOLOGY LABORATORY [facility] - Department of Dermatology [facility] [address], [facility] [phone] documented in this encounter Visit Diagnoses Not on filedocumented in this encounter
--- OUTSIDE RECORDS SUMMARY | 2024-12-31 09:42 | XMS_ITS | Patient Health Record ---
Author Organization [facility] Address [address] [place], [place] [address] Care Team Providers Care Ecosystem Ecology Professor Name Role Phone Rey Polanco Primary Care Provider PATTI Mahan Unavailable [phone] Allergies No Known Allergies Reason For Referral No Information Medications Medication SIG (Take, Route, Fr equency, Duration) Notes Start Date End Date Status Triamterene Active Metoprolol Succinate ER Active diazePAM Active Potassimin Active Tamsulosin HCl 0.4 MG 1 capsule Orally Once a day Active Omeprazole Active Rosuvastatin Calcium Active Eliquis Active Finasteride Active Immunizations Vaccine Route Administration Date Status Comme nts Influenza, high-dose seasona l, quadrivalent, preservative free >65 yrs Unknown 02/25/2024 Administered Influenza, unspecified formulation Unknown 05/02/2012 A dministered Influenza, unspecified formulation Unknown 02/12/2018 A dministered Influenza, unspecified formulation Unknown 02/12/2018 A dministered Influenza, unspecified formulation Unknown 02/12/2023 A dministered Influenza, unspecified formulation Unknown 02/12/2023 A dministered Pneumococcal conjugate PCV 13 Unknown 03/24/2020 Admini stered Pneumococcal conjugate PCV 13 Unknown 03/24/2020 Admini stered Tdap Unknown 01/15/2013 Administered Tdap Unknown 01/15/2013 Administered Tdap Unknown 04/19/2023 Administered Zoster Unknown 05/10/2017 Administered Social History Tobacco Use: Social History Observation Description Date Details (start date - stop date) Never Smoker NA - NA Tobacco Use/Smoking Question Answer Notes Tobacco use: nonsmoker Vital Signs Height-cm 182.88 cm 12/10/2024 Weight-kg 93.44 kg 12/10/2024 Height 72 in 12/10/2024 Weight 206 lbs 12/10/2024 BMI 27.94 kg/m2 12/10/2024 Encounters Encounter Location Date Provider Diagnosis [facility] [address] [id number] 09/10/2024 PATTITAI MURRELL Onychomycosis B35.1 ; Pain in left toe(s) M79.675 ; Pain in right toe(s) M79.674 ; Intermittent claudication of both lower extremities due to atherosclerosis I70.213 ; Ingrowing nail L60.0 and Difficulty in walking involving ankle and foot joint R26.2 [facility] [address] [id number] 12/10/2024 PATTITAI MURRELL Onychomycosis B35.1 ; Pain in left toe(s) M79.675 ; Pain in right toe(s) M79.674 ; Intermittent claudication of both lower extremities due to atherosclerosis I70.213 ; Ingrowing nail L60.0 and Difficulty in walking involving ankle and foot joint R26.2 [facility] [address] [address] [id number] 03/11/2024 PATTITAI MURRELL Onychomycosis B35.1 ; Pain in left toe(s) M79.675 ; Pain in right toe(s) M79.674 ; Intermittent claudication of both lower extremities due to atherosclerosis I70.213 ; Ingrowing nail L60.0 and Difficulty in walking involving ankle and foot joint R26.2 [facility] [address] [address] [id number] 06/10/2024 PATTITAI MURRELL Onychomycosis B35.1 ; Pain in left toe(s) M79.675 ; Pain in right toe(s) M79.674 ; Intermittent claudication of both lower extremities due to atherosclerosis I70.213 ; Ingrowing nail L60.0 and Difficulty in walking involving ankle and foot joint R26.2 Assessments Encounter Date Diagnosis (ICD Code) Assessment Notes Treatment Notes Treatment Clinical Notes Section Notes 03/11/2024 Pain in left toe(s) (ICD-10 - M79.675) 03/11/2024 Onychomycosis (ICD-10 - B35.1) 1. Nails 1-5 [...] for protection, healing and overall foot health 06/10/2024 Onychomycosis (ICD-10 - B35.1) 1. Nails 1-5 [...] protection, healing and overall foot health 09/10/2024 Onychomycosis (ICD-10 - B35.1) 1. Nails [...] protection, healing and overall foot health 12/10/2024 Onychomycosis (ICD-10 - B35.1) 1. Nails [...] Pain in left toe(s) (ICD-10 - M79.675) 03/11/2024 Pain in right toe(s) (ICD-10 - M79.674) 06/10/2024 Pain in left toe(s) (ICD-10 - M79.675) 09/10/2024 Pain in left toe(s) (ICD-10 - M79.675) 03/11/2024 Intermittent claudication of both lower extremities due to atherosclerosis (ICD-10 - I70.213) 09/10/2024 Pain in right toe(s) (ICD-10 - M79.674) 06/10/2024 Pain in right toe(s) (ICD-10 - M79.674) 12/10/2024 Pain in right toe(s) (ICD-10 - M79.674) 09/10/2024 Intermittent claudication of both lower extremities due to atherosclerosis (ICD-10 - I70.213) 12/10/2024 Intermittent claudication of both lower extremities due to atherosclerosis (ICD-10 - I70.213) 06/10/2024 Intermittent claudication of both lower extremities due to atherosclerosis (ICD-10 - I70.213) 03/11/2024 Ingrowing nail (ICD-10 - L60.0) 03/11/2024 Difficulty in walking involving ankle and foot joint (ICD-10 - R26.2) 06/10/2024 Ingrowing nail (ICD-10 - L60.0) 09/10/2024 Ingrowing nail (ICD-10 - L60.0) 12/10/2024 Ingrowing nail (ICD-10 - L60.0) 09/10/2024 Difficulty in walking involving ankle and foot joint (ICD-10 - R26.2) 12/10/2024 Difficulty in walking involving ankle and foot joint (ICD-10 - R26.2) 06/10/2024 Difficulty in walking involving ankle and foot joint (ICD-10 - R26.2) 09/10/2024 Other Emollient: Recommend that the patient use an emollient such as krdr-agh-vypowp r Eucerin cream, Vanicream, or other lotion to the affected area. 12/10/2024 Other Emollient: Recommend that the patient use an emollient such as htgj-fzp-afpgab r Eucerin cream, Vanicream, or other lotion to the affected area. 03/11/2024 Other Emollient: Recommend that the patient use an emollient such as zyma-ewe-gibwvz r Eucerin cream, Vanicream, or other lotion to the affected area. 06/10/2024 Other Emollient: Recommend that the patient use an emollient such as xhdu-tel-oqsylv r Eucerin cream, Vanicream, or other lotion to the affected area. Plan Of Treatment Next Appt Details Provider Name:PATTI Levy MURRELL, 03/11/2025 09:40:00 AM, [address], [place], [place], [id number], Insurance Providers Payer Name Payer Address Payer Phone Subscriber Number Group Number Insured Name Patient Relationship to Insured Coverage Start Date Coverage End Date Medicare Part B [place] [address] [place] [phone] [id number] Sonu Norwood Self - patient is the insured [facility] ([facility]) ATTN CLAIMS [address] [place] [address] [id number] Sonu Norwood Self - patient is the insured Medical (General) History Medical History History ICD Code acid reflux Leg/Feet cramps
--- NOTE | 2025-01-05 12:21 | WPDNEUROLOGY ---
Neurology EEG Report General Information Date of Study: 01/31/25 TEST EEG DIAGNOSIS Dizziness CONDITION OF RECORDING awake, drowsy and asleep. EEG NUMBER [id number] CLINICAL HISTORY 74 years old with recurrent episodes of severe dizziness which can last for 5 to 7 minutes to 3 to 4 days at a time. He also gets very confused when someone asked him a question and will not be able to answer them correctly. Triggers include bending over to look under something or crawling under something, although sometimes it just happens out of the blue. While he is driving he has to puller through because the dizziness gets so severe. He did inform that he lowered his salt intake after his hospitalization in the beginning of December and has not had any more of these spells. EEG DESCRIPTION basic resting occipital frequency consists of low to medium voltage 9 to 11 hertz per 2nd alpha posteriorly admixed with waxing and waning low-voltage beta activity. Multiple movement artifacts are noted throughout the tracing along with the muscle artifacts. Low-voltage 15 to 18 hertz per 2nd beta activity seen during drowsiness. Bilateral symmetrical sleep activity noted during sleep with symmetrical sleep spindles. Photic stimulation produced normal driving. Hyperventilation not done. Non paroxysmal. Nonfocal. Nonlateralizing. IMPRESSION No significant abnormalities noted in this tracing. Clinical correlation recommended.
== END 2024-12-31 09:34 | disposition home or self-care (01) ==
PROVIDERS: PCP Family Medicine; Visit Provider Psychiatry & Neurology Neurology
DX: R41.0 Disorientation, unspecified (principal); I10 Essential (primary) hypertension; Z95.0 Presence of cardiac pacemaker; I48.0 Paroxysmal atrial fibrillation; H81.02 Meniere's disease, left ear
CPT/HCPCS: 95816

== ENCOUNTER 2025-01-08 07:51 | Outpatient (CLI) | payer MEDICARE, BC, SELFPAY ==
--- NOTE | ~2025-01-08 | CT_ITS ---
EXAMINATION: CTA brain carotid DATE: 01/08/2025 08:23 INDICATION: Dizziness and giddiness. TECHNIQUE: Computed tomographic angiography (CTA) of the head was performed without and with 100 mL Omnipaque-350 intravenous contrast. CTA of the neck was performed with intravenous contrast. Automated exposure control and iterative reconstruction technique were employed. The dose-length product was 1853.76 mGy- cm. Maximum intensity projection and volume rendered 3D-reconstructions were created by the technologist on a separate workstation. COMPARISON: None. FINDINGS: HEAD CTA: There is no intracranial hemorrhage, acute infarction, or abnormal intracranial mass lesion. There are scattered areas of low attenuation in the cerebral white matter, which is within normal limits for the patient's age. The ventricles are normal in size. There is mild mucosal thickening in the paranasal sinuses. There are likely changes of right ocular lens replacement surgery. There are changes of left-sided cochlear implant. The vertebral arteries are codominant. There is no significant stenosis of basilar artery or the posterior cerebral arteries. There is no significant stenosis of the intracranial internal carotid arteries or anterior or middle cerebral arteries. Anterior communicating artery is normal. The posterior communicating arteries are normal. There is no aneurysm. NECK CTA: There are no pathologically enlarged lymph nodes. There is no significant stenosis of the vertebral arteries. There is plaque in the proximal internal carotid arteries. There is 7% stenosis of the proximal right internal carotid artery relative to normal distal artery lumen diameter (NASCET c riteria). There is 0% stenosis of the proximal left internal carotid artery relative to normal distal artery lumen diameter. There is severe cervical spondylosis. IMPRESSION: 1. Normal aging brain. 2. No aneurysm or significant intracranial arterial stenosis. 3. 7% stenosis of the proximal right internal carotid artery relative to normal distal artery lumen diameter (NASCET criteria). 2. 0% stenosis of the proximal left internal carotid artery relative to normal distal artery lumen diameter. Reviewed, dictated and finalized at location K.
[2025-01-08 08:14] LABS: Estimated Glomerular Filt Rate > 60
== END 2025-01-08 07:52 | disposition home or self-care (01) ==
PROVIDERS: PCP Family Medicine; Visit Provider Psychiatry & Neurology Neurology
DX: R41.0 Disorientation, unspecified (principal); I10 Essential (primary) hypertension; Z95.0 Presence of cardiac pacemaker; I48.0 Paroxysmal atrial fibrillation; H81.02 Meniere's disease, left ear; I65.21 Occlusion and stenosis of right carotid artery
CPT/HCPCS: 70496; 70498; Q9967